=== PATIENT | female | born 1950 | race Caucasian/White ===

== ENCOUNTER → 2021-07-23 13:55 | Outpatient (BNVA) | payer MEDICARE, SELFPAY | PROVIDERS: PCP Physician Assistant Medical; Visit Provider Hospitalist | DX: U09.9 Post COVID-19 condition, unspecified (principal); J96.10 Chronic respiratory failure, unspecified whether with hypoxia or hypercapnia; J45.909 Unspecified asthma, uncomplicated | CPT/HCPCS: 94618; 99202 ==

== ENCOUNTER 2021-08-21 13:07 | Outpatient (REF) | payer MEDICARE, SELFPAY ==
--- NOTE | 2021-08-21 17:45 | PFT_ITS ---
FLOWS: FEV1 46% of predicted at 1.02 L. FVC 47% of predicted at 1.38 L. FEV1 to FVC ratio of 0.74. No bronchodilator response except in small to medium airways. LUNG VOLUMES: Total lung capacity 65% of predicted at 3.29 L. Residual volume 88% of predicted at 1.99 L. Slow vital capacity 46% of predicted at 1.30 L. Expiratory reserve volume 45% of predicted at 0.29 L. Diffusion capacity is severely decreased, diffusion capacity adjust to being mildly decreased after correction for alveolar ventilation. IMPRESSION: Tnolckcs-dh-ibcprx restrictive ventilatory defect with no bronchodilator response except in ktnnb-ha-dlstgf airways. Decreased expiratory reserve volume suggests extrathoracic restriction, likely secondary to abdominal obesity. Decreased diffusion capacity suggests emphysema. Richard Lee MD AP/MODL / [id number]
== END 2021-08-21 13:08 | disposition home or self-care (01) ==
LOC: HO.RESP 13:07
PROVIDERS: PCP Physician Assistant Medical; Visit Provider Hospitalist
DX: J96.10 Chronic respiratory failure, unspecified whether with hypoxia or hypercapnia (principal); U09.9 Post COVID-19 condition, unspecified
CPT/HCPCS: 94060; 94727; 94729; 99212

== ENCOUNTER 2023-11-04 10:21 | Outpatient (AMB) | payer MEDICARE, SELFPAY ==
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
[2023-11-04 10:32] VITALS: PULSE 83; O2SAT 95; BMI 40.3
== END 2023-11-04 11:06 | disposition home or self-care (01) ==
PROVIDERS: PCP Physician Assistant Medical; Visit Provider Hospitalist
DX: J96.10 Chronic respiratory failure, unspecified whether with hypoxia or hypercapnia (principal); U09.9 Post COVID-19 condition, unspecified; J45.40 Moderate persistent asthma, uncomplicated; J98.4 Other disorders of lung; R06.09 Other forms of dyspnea
CPT/HCPCS: 99214

== ENCOUNTER → 2023-11-04 10:21 | Outpatient (BNVA) | payer MEDICARE, SELFPAY | PROVIDERS: PCP Physician Assistant Medical; Visit Provider Hospitalist | DX: U09.9 Post COVID-19 condition, unspecified (principal); J96.10 Chronic respiratory failure, unspecified whether with hypoxia or hypercapnia; J45.40 Moderate persistent asthma, uncomplicated; J98.4 Other disorders of lung; Z99.81 Dependence on supplemental oxygen | CPT/HCPCS: 99212 ==

== ENCOUNTER 2024-05-03 14:07 | Outpatient (AMB) | payer MEDICARE, SELFPAY ==
[2024-05-03 14:21] VITALS: BP 144/7; PULSE 99; O2SAT 93; BMI 43.5
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
== END 2024-05-03 14:48 | disposition home or self-care (01) ==
PROVIDERS: PCP Physician Assistant Medical; Visit Provider Hospitalist
DX: J96.10 Chronic respiratory failure, unspecified whether with hypoxia or hypercapnia (principal); J45.40 Moderate persistent asthma, uncomplicated; J98.4 Other disorders of lung
CPT/HCPCS: 99214

== ENCOUNTER → 2024-05-03 14:07 | Outpatient (BNVA) | payer MEDICARE, SELFPAY | PROVIDERS: PCP Physician Assistant Medical; Visit Provider Hospitalist | DX: J96.10 Chronic respiratory failure, unspecified whether with hypoxia or hypercapnia (principal); J45.40 Moderate persistent asthma, uncomplicated; J98.4 Other disorders of lung; U09.9 Post COVID-19 condition, unspecified | CPT/HCPCS: 99212 ==